=== PATIENT | female | born 1955 | race American Indian/Alaskan Native ===

== ENCOUNTER 2020-02-20 23:09 | Emergency (ER) | payer SELFPAY ==
--- NOTE | 2020-02-20 23:40 | Emergency Department Report ---
ED CPR [facility] - General Chief Complaint: Cardiac Arrest/CPR Stated Complaint: CARDIAC ARREST Time Seen by Provider: 02/20/20 23:31 Source: patient Mode of arrival: Stretcher Limitations: No Limitations - History of Present Illness Initial Comments: Patient is 64 years old female brought to the emergency room in a full cardiac arrest with CPR in progress. EMS stated that patient initially was unresponsive but she does have a weak pulse and monitor showed sinus tachycardia. EMS tried to intubate the patient however patient went into a cardiac arrest when EMS are pulling to our hospital. ACLS immediately started by EMS. Patient found to be in a PEA rhythm. Upon arrival to the ER patient immediately intubated by me using a glide scope with visualization of tube going through the cord and a good breath sound on both sides and change of color on capnography. ACLS protocol continued. Patient regained her pulse for a moment and lost it again into PEA. Patient remained in PEA. Pupils are fixed and dilated and nonreactive to light. Patient pronounced at 11:30 PM. For further information please refer to code sheet. No family available at this moment. Complaint: found unresponsive Place: home Shock Advised: No Initial Findings in the Field: unresponsive ROSC in the Field: No Associated Injuries: No Treatments Prior to Arrival: BMV, chest compressions ED Review of Systems ROS: Stated complaint: CARDIAC ARREST Other details as noted in HPI ED Physical Exam - General Limitations: No Limitations General appearance: other (CPR in progress) - Head Head exam: Present: atraumatic, normocephalic, normal inspection - Eye Eye exam: Present: normal appearance - ENT ENT exam: Present: mucous membranes dry - Neck Neck exam: Present: normal inspection - Respiratory Respiratory exam: Present: other (No spontaneous breathing) - Cardiovascular Cardiovascular Exam: Present: other (No spontaneous heart tone.) - GI/Abdominal GI/Abdominal exam: Present: soft. Absent: distended - Back Exam Back exam: Present: other - Neurological Exam Neurological exam: Present: other - Skin Skin exam: Present: warm - Intubation Time Out Performed: Yes Laryngoscope: Manny Size: 4 ET Tube Size: 7.5 Tube Secured Location: teeth Tube Placement Confirmation: visualized tube passing t, equal breath sounds bilat, no breath sounds over epi, confirmation by capnometr Patient Tolerated Procedure: well, no complications Intubation Complications: none Critical Care Time: Yes Critical care time in (mins) excluding proc time.: 30 Critical care attestation.: If time is entered above; I have spent that time in minutes in the direct care of this critically ill patient, excluding procedure time. ED Disposition Clinical Impression: Cardiopulmonary arrest Disposition: DC-20 Is pt being admited?: No Condition: Stable
[2020-02-21] MEDS ORDERED: SODIUM CHLORIDE 0.9% 1000 ML 2,000 ML ONE (03:23)
== END 2020-02-21 05:19 ==
LOC: ED 23:09
DX: I46.9 Cardiac arrest, cause unspecified (principal)
CPT/HCPCS: 31500; 92950; 99285; J7030